=== PATIENT | female | born 1990 | race Caucasian/White ===

== ENCOUNTER → 2017-06-29 | Outpatient (CLI) | payer OTHER ==
[~2017-06-29] MED LIST: AMLO5 PO; AMOCLA500 PO; AZAT50 PO; BUME2 PO; CALCIUM WITH V1 EACH PO; CLON.2 PO; Cellcept500 MG PO; DELTASONE20 MG PO; FERR325 PO; FURO40 PO; HYDACE10B PO; LEVSOD75 PO; LISI5 PO; MYCO250 PO; Mepron750 MG/5 M PO; Norvasc2.5 MG PO; OMEP20ER PO; PENVK500 PO; PRED20 PO; TEMA15 PO; Tylenol325 MG PO; [UNRECOGNIZED DRUG - CODE]
[2017-06-29 19:30] LABS: Albumin, Blood 2.3 g/dL (3.4-5.0); Albumin/Globulin Ratio 0.9 (0.8-1.8); Bilirubin, Total 0.2 mg/dL (0.1-1.0); Calcium, Blood 8.1 mg/dL (8.5-10.1); Creatinine, Blood 5.19 mg/dL (0.40-1.00); Globulin, Blood 2.5 g/dL (2.2-4.0); Potassium, Blood 3.4 mmol/L (3.5-5.5); Total Protein, Blood 4.8 g/dL (6.4-8.2)
== END | disposition home or self-care (01) ==
LOC: LAB 15:59
PROVIDERS: Internal Medicine Hematology & Oncology
DX: M32.14 Glomerular disease in systemic lupus erythematosus (principal); D72.819 Decreased white blood cell count, unspecified
CPT/HCPCS: 80053